=== PATIENT | female | born 1970 | race Caucasian/White ===

== ENCOUNTER 2016-08-19 11:04 | Emergency (ER) | payer BC ==
[~2016-08-19] VITALS: Wt 61.2 kg
[~2016-08-19 11:04] MED LIST: DARVOCET N 1001 TAB PO; DAYPRO600 M1 PO; FLEXERIL10 MG PO; HYDROCODONE BIT1 T11 PO; MEDROL DOSEPAK4 MG PO; MINOCYCLINE HC100 MG PO; MOTRIN800 MG PO; NEURONTIN600 MG PO; PREDNICOT20 MG PO
[2016-08-19] MEDS ORDERED: TRAZODONE100 MG PO (11:15)
[2016-08-19] MEDS ORDERED: MEDROL DOSEPAK4 MG PO (13:22)
[2016-08-19] MEDS ORDERED: ORPHENADRINE C100 M1 PO (13:22)
[2016-08-19] MEDS ORDERED: PERCOCET 325 MG1 TA7 PO (13:22)
== END 2016-08-19 14:55 | disposition home or self-care (01) ==
LOC: ED 11:04
DX: S39.012A Strain of muscle, fascia and tendon of lower back, initial encounter (principal); Z88.0 Allergy status to penicillin; Z79.899 Other long term (current) drug therapy; X58.XXXA Exposure to other specified factors, initial encounter; Y93.89 Activity, other specified; Y92.89 Other specified places as the place of occurrence of the external cause; Y99.8 Other external cause status

== ENCOUNTER 2016-08-22 10:34 | Inpatient (IN) | payer BC ==
[~2016-08-22] VITALS: Ht 167.6 cm; Wt 62.7 kg
--- NOTE | ~2016-08-22 | CON ---
[place], [place] REPORT OF CONSULTATION NAME: SIMON GORDON [facility] #: [id number] UNIT #: [id number] ROOM: 530 DOCTOR: MG WALTERS MD BIRTHDATE: [birth year] DOS: 08/24/2016 REASON FOR CONSULTATION: Chest pain. HISTORY OF PRESENT ILLNESS: The patient is a 46-year-old woman who was hospitalized on 08/22/2016 after two syncopal episodes. The day before her admission, she had "thrown her back out." She did have some back pain as she was getting ready for work, she became lightheaded and almost passed out. She recovered and drove to work, but then had another episode at which time she believes she did lose consciousness. She was therefore brought to the Emergency Room. At the same time, she began to notice a tight sensation in her chest. Since then, the pain in her chest has become sharper but she still has tightness as well. Since her admission, the tightness has not resolved. She does note that taking deep breaths makes the chest tightness and the pain worse. She has continued to have lightheadedness, but denies vertigo. She feels weak and has numbness sensations in her arms. Her symptoms were not resolving and she did have some chest discomfort and therefore cardiac consultation was requested. The patient did have an echocardiogram today, which I reviewed. It showed no evidence for pericarditis and was an entirely normal study. Electrocardiograms obtained during the pain have been unremarkable. PAST MEDICAL HISTORY: Includes: 1. Anxiety disorder. 2. Herniated vertebral disk. 3. History of meningioma which is small and has not been resected. 4. History of insomnia. 5. History of hysterectomy, hernia surgery, tonsillectomy and adenoidectomy. MEDICATIONS: Prior to admission, gabapentin 600 mg t.i.d., Medrol Dosepak 4 mg on a taper dose schedule, oxycodone with acetaminophen 325/10 one tablet q.4h. p.r.n., and trazodone 100 mg daily. ALLERGIES: The patient lists an allergy to PENICILLINS. REVIEW OF SYSTEMS: The patient denies diplopia or loss of vision. She denies lightheadedness or syncope prior to her current events. She has had a headache since the current events have been taking place. She denies photophobia. She has had nausea and occasional dry heaves. She does not notice any odynophagia and eating food does not make her symptoms improve. She denies dyspnea, but she states that it does hurt to take a deep breath. She has a minimal cough which is nonproductive. She denies palpitations. She denies hemoptysis or hematemesis. She denies blood in her stools or urine. She has noticed some swelling in her ankles. She denies any skin rashes. She denies polydipsia or polyuria. The remainder of the review of systems is negative except as noted above. SOCIAL HISTORY: The patient is . She does not drink alcohol or consume tobacco. [place], [place] REPORT OF CONSULTATION NAME: SIMON GORDON UNIT #: [id number] ROOM: [facility] DOCTOR: MG WALTERS MD BIRTHDATE: [birth year] PHYSICAL EXAMINATION: GENERAL: The patient is a slender white female who is awake, alert and oriented. VITAL SIGNS: Pulse is 66 and regular, blood pressure is 105/67. She weighs 62.7 kg and has a body mass index of 22.3. HEENT: Normocephalic, atraumatic. Extraocular muscles are intact. Sclerae are clear. Pupils are equal, round and reactive to light. The oral mucosa is moist. Tongue is midline. NECK: Supple. She has no jugular distention. Carotids are full and I heard no bruits. She had no neck or supraclavicular masses. Respirations were unlabored. CHEST: Clear to auscultation and percussion. I heard no rubs. She did complain of pain on deep breathing, however. She did not have any presacral edema or chest wall tenderness. I could not reproduce her pains by pressing on her chest. HEART: Heart has a regular rhythm without murmurs, rubs or gallops. The PMI is not displaced and there is no precordial heave, lift or thrill. ABDOMEN: Soft and normoactive without masses, organomegaly or bruits. EXTREMITIES: Showed no edema. Pedal pulses are easily palpated in the feet. LABORATORY DATA: I reviewed her electrocardiograms, they showed sinus rhythm with poor precordial R-wave progression, but was otherwise normal. As noted above, I reviewed her echocardiogram. It was entirely normal. IMPRESSION: 1. Pleuritic chest pain. This may represent a viral syndrome. I do not see any evidence for pericarditis at this time. 2. Near syncope x 2. This probably was vasovagal and related to her developing viral illness. I have no further plans for cardiac workup on this patient at this time. We can continue to monitor her and if she develops more pleuritic chest pain, we can reassess her for pericarditis, but at this point, I think that conservative therapy with IV fluids to prevent further episodes of syncope and possibly anti-inflammatory drugs for her pain would be all that should be required. I have no plans for any advanced cardiac diagnostics or therapeutics at this time. I thank the hospitalist physicians for asking our advice regarding her care. [place], [place] REPORT OF CONSULTATION NAME: SIMON GORDON UNIT #: [id number] ROOM: 530 DOCTOR: MG WALTERS MD BIRTHDATE: [birth year] MG WALTERS MD CM:CONSTR:REPORT OF CONSULTATION 37 08/25/16 0131 interface
[~2016-08-22 10:34] MED LIST changes: +ORPHENADRINE C100 M1 PO; +PERCOCET 325 MG1 TA7 PO; +TRAZODONE100 MG PO
[2016-08-22 10:46] VITALS: BP 128/74
[2016-08-22 11:14] LABS: BASO % 0.5 % (0.0-1.0); EOS # 0.1 10*3/uL (0.0-0.4); EOS % 0.6 % (1.0-4.0); HEMATOCRIT 40.7 % (37.0-47.0); HEMOGLOBIN 13.6 g/dl (12.0-16.0); LYMPH % 23.5 % (27.0-41.0); MEAN CELL VOLUME 94.7 fl (81.0-99.0); MEAN CORPUSCULAR HGB 31.6 pg (27.0-31.0); MEAN CORPUSCULAR HGB CONC 33.4 g/dl (33.0-37.0); MEAN PLATELET VOLUME 9.5 fl (9.6-12.3); MONO # 0.6 10*3/uL (0.1-1.0); MONO % 6.6 % (3.0-9.0); NEUT % 68.6 % (47.0-73.0); PLATELET COUNT AUTOMATED 278 10*3/uL (130-400); RED CELL DISTRI WIDTH 12.5 % (0-14.5); WHITE BLOOD COUNT 8.7 10*3/uL (4.8-10.8)
[2016-08-22 11:22] LABS: PROTHROMBIN TIME 10.2 SECONDS (9.0-12.4)
[2016-08-22 11:32] LABS: ALBUMIN 3.9 gm/dl (3.1-4.5); ALKALINE PHOSPHATASE 57 U/L (45-117); BILIRUBIN, TOTAL 0.3 mg/dl (0.2-1.0); BUN 18 mg/dl (7-24); CARBON DIOXIDE 28 mmol/L (21-32); CHLORIDE 104 mmol/L (98-107); EST GLOM FILT AFRICAN AMERICAN > 60 ml/min; GLUCOSE 81 mg/dL (65-99); MAGNESIUM 2.3 mg/dL (1.5-2.1); SGOT/AST 24 IU/L (3-35); SGPT/ALT 22 U/L (12-78); SODIUM 143 mmol/L (136-145); TOTAL PROTEIN 7.1 gm/dL (6.4-8.2)
[2016-08-22 11:36] LABS: TROPONIN I < 0.015 ng/ml (<0.045)
[2016-08-22 12:03] VITALS: BP 109/66
[2016-08-22 12:50] VITALS: BP 117/65
[2016-08-22 15:36] VITALS: BP 112/78
[2016-08-22 20:00] VITALS: BP 111/64
[2016-08-23] VITALS: BP 108/52
[2016-08-23 06:19] LABS: BASO % 0.1 % (0.0-1.0); HEMATOCRIT 36.2 % (37.0-47.0); HEMOGLOBIN 12.1 g/dl (12.0-16.0); IG # 0.1 10*3/uL (0.0-0.1); LYMPH # 1.3 10*3/uL (1.3-4.4); LYMPH % 8.6 % (27.0-41.0); MEAN CELL VOLUME 93.3 fl (81.0-99.0); MEAN CORPUSCULAR HGB 31.2 pg (27.0-31.0); MEAN CORPUSCULAR HGB CONC 33.4 g/dl (33.0-37.0); MEAN PLATELET VOLUME 9.7 fl (9.6-12.3); MONO # 0.8 10*3/uL (0.1-1.0); MONO % 5.8 % (3.0-9.0); NEUT # 12.4 10*3/uL (2.3-7.9); NEUT % 84.9 % (47.0-73.0); PLATELET COUNT AUTOMATED 268 10*3/uL (130-400); RED BLOOD COUNT 3.88 10*6/uL (4.10-5.10); RED CELL DISTRI WIDTH 12.2 % (0-14.5); WHITE BLOOD COUNT 14.5 10*3/uL (4.8-10.8)
[2016-08-23 06:23] LABS: ALBUMIN 3.2 gm/dl (3.1-4.5); ALKALINE PHOSPHATASE 50 U/L (45-117); BILIRUBIN, TOTAL 0.4 mg/dl (0.2-1.0); BUN 13 mg/dl (7-24); CARBON DIOXIDE 23 mmol/L (21-32); CHLORIDE 110 mmol/L (98-107); CHOLESTEROL 118 mg/dL (<200); EST GLOM FILT AFRICAN AMERICAN > 60 ml/min; GLUCOSE 99 mg/dL (65-99); HDL CHOLESTEROL 59 mg/dl (40-60); LDL CHOLESTEROL 43 mg/dL (9-159); MAGNESIUM 2.3 mg/dL (1.5-2.1); PHOSPHOROUS 2.7 mg/dL (2.5-4.9); POTASSIUM 4.2 mmol/L (3.5-5.1); SGOT/AST 19 IU/L (3-35); SGPT/ALT 19 U/L (12-78); SODIUM 142 mmol/L (136-145); TOTAL PROTEIN 5.9 gm/dL (6.4-8.2); TRIGLYCERIDES 79 mg/dl (<150); VLDL CHOLESTEROL 16 mg/dL (6-40)
[2016-08-23 06:30] LABS: THYROID STIM HORMONE (HS) 0.586 uIU/ml (0.358-4.75)
[2016-08-23 07:22] LABS: HEMOGLOBIN A1c 4.9 % (4.8-5.6)
[2016-08-23 08:00] VITALS: BP 92/56
[2016-08-23 08:08] LABS: VITAMIN D, 25-HYDROXY 46.6 ng/mL (30-100)
[2016-08-23 08:10] LABS: FOLIC ACID > 24.00 ng/mL (>5.38)
[2016-08-23 12:00] VITALS: BP 102/54
[2016-08-23 16:00] VITALS: BP 101/56
[2016-08-23 20:00] VITALS: BP 113/68
[2016-08-23 22:30] VITALS: BP 112/68
[2016-08-24 06:43] LABS: BASO % 0.5 % (0.0-1.0); EOS % 0.3 % (1.0-4.0); HEMATOCRIT 32.8 % (37.0-47.0); HEMOGLOBIN 10.7 g/dl (12.0-16.0); LYMPH # 3.2 10*3/uL (1.3-4.4); LYMPH % 49.7 % (27.0-41.0); MEAN CELL VOLUME 96.2 fl (81.0-99.0); MEAN CORPUSCULAR HGB 31.4 pg (27.0-31.0); MEAN CORPUSCULAR HGB CONC 32.6 g/dl (33.0-37.0); MEAN PLATELET VOLUME 9.9 fl (9.6-12.3); MONO # 0.4 10*3/uL (0.1-1.0); MONO % 6.6 % (3.0-9.0); NEUT # 2.8 10*3/uL (2.3-7.9); NEUT % 42.7 % (47.0-73.0); PLATELET COUNT AUTOMATED 206 10*3/uL (130-400); RED BLOOD COUNT 3.41 10*6/uL (4.10-5.10); RED CELL DISTRI WIDTH 12.7 % (0-14.5); WHITE BLOOD COUNT 6.5 10*3/uL (4.8-10.8)
[2016-08-24 08:00] VITALS: BP 105/60
[2016-08-24 12:00] VITALS: BP 107/61
[2016-08-24 15:04] VITALS: BP 126/73
[2016-08-24 15:49] LABS: CKMB 0.5 ng/ml (0.5-3.6); CPK 42 U/L (26-192); TROPONIN I < 0.015 ng/ml (<0.045)
[2016-08-24 16:00] VITALS: BP 105/67
[2016-08-24 20:00] VITALS: BP 106/58
[2016-08-25] VITALS: BP 106/62
[2016-08-25 05:57] LABS: BASO % 0.4 % (0.0-1.0); EOS # 0.1 10*3/uL (0.0-0.4); EOS % 0.8 % (1.0-4.0); HEMATOCRIT 36.9 % (37.0-47.0); HEMOGLOBIN 12.4 g/dl (12.0-16.0); LYMPH # 3.1 10*3/uL (1.3-4.4); LYMPH % 42.7 % (27.0-41.0); MEAN CELL VOLUME 93.9 fl (81.0-99.0); MEAN CORPUSCULAR HGB 31.6 pg (27.0-31.0); MEAN CORPUSCULAR HGB CONC 33.6 g/dl (33.0-37.0); MEAN PLATELET VOLUME 9.8 fl (9.6-12.3); MONO # 0.5 10*3/uL (0.1-1.0); MONO % 6.3 % (3.0-9.0); NEUT # 3.6 10*3/uL (2.3-7.9); NEUT % 49.5 % (47.0-73.0); PLATELET COUNT AUTOMATED 240 10*3/uL (130-400); RED BLOOD COUNT 3.93 10*6/uL (4.10-5.10); RED CELL DISTRI WIDTH 12.4 % (0-14.5); WHITE BLOOD COUNT 7.3 10*3/uL (4.8-10.8)
[2016-08-25 06:09] LABS: BUN 12 mg/dl (7-24); CARBON DIOXIDE 26 mmol/L (21-32); CHLORIDE 107 mmol/L (98-107); EST GLOM FILT AFRICAN AMERICAN > 60 ml/min; GLUCOSE 84 mg/dL (65-99); POTASSIUM 3.6 mmol/L (3.5-5.1); SODIUM 142 mmol/L (136-145)
[2016-08-25 08:00] VITALS: BP 105/62
[2016-08-25 12:00] VITALS: BP 97/65
[2016-08-25 16:00] VITALS: BP 110/64
[2016-08-25 20:00] VITALS: BP 111/70
[2016-08-26] VITALS: BP 104/48
[2016-08-26 08:00] VITALS: BP 98/66
[2016-08-26 12:00] VITALS: BP 100/77
== END 2016-08-26 16:15 | disposition short-term general hospital (02) | DRG 54 ==
LOC: ED 10:34 → EDHOLD 14:46 → 5E 14:50
PROVIDERS: Hospitalist; Nurse Practitioner Family
DX: D32.0 Benign neoplasm of cerebral meninges (principal); N17.0 Acute kidney failure with tubular necrosis; R07.9 Chest pain, unspecified; R55 Syncope and collapse; E83.41 Hypermagnesemia; G47.00 Insomnia, unspecified; F41.9 Anxiety disorder, unspecified; K21.9 Gastro-esophageal reflux disease without esophagitis; Z88.0 Allergy status to penicillin; Z90.710 Acquired absence of both cervix and uterus; Z83.3 Family history of diabetes mellitus; Z80.0 Family history of malignant neoplasm of digestive organs; Z79.899 Other long term (current) drug therapy